=== PATIENT | female | born 2000 | race Two or more races ===

== ENCOUNTER 2022-06-08 13:56 | Emergency (ER) ==
[2022-06-08 15:49] LABS: #Lymphocytes 1.5 thou/uL (1.20-3.40); #Monocytes 0.6 thou/uL (0.11-0.59); #Neutrophils 4.8 thou/uL (1.40-6.50); %Basophils 0.4 % (0.0-1.0); %Eosinophils 0.2 % (0.0-10.0); %Lymphocytes 21.2 % (21.0-51.0); %Monocytes 8.9 % (0.0-10.0); %Neutrophils 69.4 % (42.0-75.0); Hemoglobin 10.4 g/dL (12.0-16.0); Mean Corpuscular Volume 84.2 fL (78.0-98.0); Mean Platelet Volume 7.8 fL (7.4-10.4); Platelet Count 259 thou/uL (130-400); Red Blood Cell (RBC) Count 3.85 mill/uL (4.20-5.40); White Blood Cell (WBC) Count 6.9 thou/uL (4.8-10.8)
[2022-06-08 16:09] LABS: ALT (SGPT) 15 U/L (8-55); AST (SGOT) 24 U/L (5-34); Albumin 3.8 g/dL (3.5-5.0); Alkaline Phosphatase 66 U/L (40-110); Anion Gap 13 mmol/L (10-20); BUN (Urea Nitrogen) 5 mg/dL (7.0-18.7); Bilirubin, Total 0.4 mg/dL (0.2-1.2); Calc. Creatinine Clearance 0 mL/min (70-130); Calcium 9.5 mg/dL (7.8-10.44); Carbon Dioxide 23 mmol/L (22-29); Chloride 104 mmol/L (98-107); Estimated GFR 106; Globulin 4.7 g/dL (2.4-3.5); Glucose 85 mg/dL (70-105); Potassium 4.1 mmol/L (3.5-5.1); Protein, Total 8.5 g/dL (6.0-8.3); Sodium 136 mmol/L (136-145)
[2022-06-08] MEDS ORDERED: Ibuprofen 200 MG TAB ONE (16:29)
[2022-06-08 17:22] LABS: Bilirubin Negative (Negative); Blood, Urine Negative (Negative); Clarity Clear (Clear); Glucose, Urine (Dipstick) Normal (Negative); Ketone, Urine Negative (Negative); Leukocyte Negative Leu/uL (Negative); Nitrite Negative (Negative); Protein, Urine (Dipstick) Negative (Neg-Trace); Specific Gravity, Urine 1.005 (1.002-1.036); Urobilinogen Normal mg/dL (Less than 2); pH, Urine 6.5 (5.0-9.0)
[2022-06-08 17:26] LABS: Pregnancy Test - Urine (BHCG) Negative (Negative); Pregu Control Background? CLEAR/WHITE (CLR/WHITE); Pregu Control Bar Appear? YES (CONTROL BAR); Specific Gravity 1.005 (1.002-1.036)
[2022-06-08 17:41] LABS: SARS-CoV-2 NAA Rapid Test Not Detected (NotDetected)
== END 2022-06-08 20:27 | disposition home or self-care (01) ==
LOC: ERS 13:56
DX: R50.9 Fever, unspecified (principal); Z20.822 Contact with and (suspected) exposure to COVID-19
CPT/HCPCS: 36415; 71045; 80053; 81003; 81025; 83605; 85025; 85060; 87040; 87086; 87207

== ENCOUNTER 2022-06-18 20:24 | Inpatient (IN) | payer BC ==
[2022-06-18] MEDS ORDERED: Ondansetron ODT 4 MG TAB ONE (22:06)
[2022-06-18 22:33] LABS: #Lymphocytes 1.8 thou/uL (1.20-3.40); #Monocytes 0.5 thou/uL (0.11-0.59); #Neutrophils 4.4 thou/uL (1.40-6.50); %Basophils 0.7 % (0.0-1.0); %Eosinophils 0.6 % (0.0-10.0); %Lymphocytes 26.6 % (21.0-51.0); %Monocytes 6.7 % (0.0-10.0); %Neutrophils 65.4 % (42.0-75.0); Hemoglobin 10.5 g/dL (12.0-16.0); Mean Corpuscular HGB CONC 31.9 g/dL (32.0-36.0); Mean Corpuscular Volume 84.6 fL (78.0-98.0); Mean Platelet Volume 8.3 fL (7.4-10.4); Platelet Count 225 thou/uL (130-400); RBC Distribution Width 15.7 % (11.5-14.5); Red Blood Cell (RBC) Count 3.89 mill/uL (4.20-5.40); White Blood Cell (WBC) Count 6.7 thou/uL (4.8-10.8)
[2022-06-18 22:35] LABS: SARS-CoV-2 NAA Rapid Test Not Detected (NotDetected)
[2022-06-18 22:38] LABS: BHCG - Serum Negative (NEGATIVE); Pregs Control Background? CLEAR/WHITE (CLR/WHITE); Pregs Control Bar Appear? YES (CONTROL BAR)
[2022-06-18 22:55] LABS: ALT (SGPT) 12 U/L (8-55); AST (SGOT) 26 U/L (5-34); Albumin 3.7 g/dL (3.5-5.0); Alkaline Phosphatase 71 U/L (40-110); Anion Gap 15 mmol/L (10-20); BUN (Urea Nitrogen) 7 mg/dL (7.0-18.7); Bilirubin, Total 0.5 mg/dL (0.2-1.2); Calc. Creatinine Clearance 0 mL/min (70-130); Calcium 9.2 mg/dL (7.8-10.44); Carbon Dioxide 21 mmol/L (22-29); Chloride 103 mmol/L (98-107); Estimated GFR 113; Globulin 4.5 g/dL (2.4-3.5); Glucose 88 mg/dL (70-105); Potassium 3.9 mmol/L (3.5-5.1); Protein, Total 8.2 g/dL (6.0-8.3); Sodium 135 mmol/L (136-145)
[2022-06-18 23:35] LABS: Bilirubin Negative (Negative); Blood, Urine Negative (Negative); Clarity Clear (Clear); Glucose, Urine (Dipstick) Normal (Negative); Ketone, Urine Negative (Negative); Leukocyte Negative Leu/uL (Negative); Nitrite Negative (Negative); Protein, Urine (Dipstick) Negative (Neg-Trace); Specific Gravity, Urine 1.019 (1.002-1.036); Urobilinogen Normal mg/dL (Less than 2)
[2022-06-19 00:25] LABS: MONO NEGATIVE CONTROL ZONE White (Negative) (White); MONO POSITIVE CONTROL Pink Line (Positive) (PINK/RED)
[2022-06-19 00:26] LABS: Mononucleosis NEGATIVE (NEGATIVE)
[2022-06-19 00:29] LABS: HIV (1/2) Antibody/Antigen Non-Reactive (NonReactive); HIV 1/2 INDEX 0.15 S/CO (<1.00)
[2022-06-19] MEDS ORDERED: Enoxaparin Sodium 60 MG/0.6 ML SYRINGE ONE (02:23)
[2022-06-19] MEDS ORDERED: Ondansetron ODT 4 MG TAB SL PRN (06:00)
[2022-06-19] MEDS ORDERED: Ondansetron PF 4 MG/2 ML Vial IVP PRN (06:00)
[2022-06-19] MEDS ORDERED: Sodium Chloride 0.9% 1,000 ML IV SCH (06:00)
[2022-06-19] MEDS ORDERED: Acetaminophen 650 MG Suppository PR PRN (06:29)
[2022-06-19 07:16] VITALS: BMI 21.4
[2022-06-19 09:07] LABS: INR-International Normal Ratio 1.2; Prothrombin Time 15.4 sec (12.0-14.7)
[2022-06-19 09:08] LABS: PTT 46.8 sec (22.9-36.1)
[2022-06-19 09:16] LABS: D-Dimer Test 3.92 *mcg/mL (0.27-0.43)
[2022-06-19] MEDS: NS 0.9% w/ 20 MEQ KCL 1,000 ML/1,000 ML BAG IV SCH ×2 (09:43→21:14)
[2022-06-19] MEDS ORDERED: Iopamidol 370 76% 100 ML VIAL ONE (13:08)
[2022-06-19] MEDS: Enoxaparin Sodium 60 MG/0.6 ML SYRINGE SC SCH (14:20)
[2022-06-19] MEDS ORDERED: Iron Sucrose Complex 200 MG in Sodium Chloride 0.9% 100 ML IVPB SCH (14:45)
[2022-06-19] MEDS ORDERED: Polyethylene Glycol 3350 17 GM Packet PO PRN (14:49)
[2022-06-19] MEDS: Iron, Sodium Ferric Gluconate 250 MG in Sodium Chloride 0.9% 250 ML 250 ML IVPB SCH (16:35)
[2022-06-19] MEDS: Acetaminophen 325 MG TAB PO PRN (16:50)
[2022-06-19] MEDS: cefTRIAXone\\ROCEPHIN 2 GM in Sodium Chloride 0.9% 100 ML IVPB SCH (18:43)
[2022-06-19] MEDS ORDERED: Docusate 100 MG CAP PO SCH (21:00)
[2022-06-19] MEDS: Doxycycline 100 MG CAP PO SCH (21:13)
[2022-06-19] MEDS ORDERED: Ondansetron ODT 4 MG TAB PO PRN (21:26)
[2022-06-19] MEDS: Ondansetron PF 4 MG/2 ML Vial IVP PRN (21:47)
[2022-06-20] MEDS: Enoxaparin Sodium 60 MG/0.6 ML SYRINGE SC SCH ×2 (03:18→14:40)
[2022-06-20] MEDS: Acetaminophen 325 MG TAB PO PRN ×3 (03:36→21:34)
[2022-06-20] MEDS ORDERED: Acetaminophen 325 MG TAB PO SCH (04:45)
[2022-06-20 05:29] LABS: #Eosinphils 0.1 thou/uL (0.0-0.7); #Lymphocytes 1.6 thou/uL (1.20-3.40); #Monocytes 0.6 thou/uL (0.11-0.59); #Neutrophils 4.3 thou/uL (1.40-6.50); %Basophils 0.2 % (0.0-1.0); %Eosinophils 1.1 % (0.0-10.0); %Monocytes 8.4 % (0.0-10.0); %Neutrophils 65.4 % (42.0-75.0); Hemoglobin 9.8 g/dL (12.0-16.0); Mean Corpuscular HGB CONC 31.4 g/dL (32.0-36.0); Mean Corpuscular Hemoglobin 26.9 pg (27.0-31.0); Mean Corpuscular Volume 85.7 fL (78.0-98.0); Mean Platelet Volume 8.4 fL (7.4-10.4); Platelet Count 205 thou/uL (130-400); RBC Distribution Width 15.8 % (11.5-14.5); Red Blood Cell (RBC) Count 3.65 mill/uL (4.20-5.40); White Blood Cell (WBC) Count 6.6 thou/uL (4.8-10.8)
[2022-06-20 05:31] LABS: INR-International Normal Ratio 1.2; Prothrombin Time 15.4 sec (12.0-14.7)
[2022-06-20 05:46] LABS: Anion Gap 10 mmol/L (10-20); BUN (Urea Nitrogen) 4 mg/dL (7.0-18.7); Calc. Creatinine Clearance 111 mL/min (70-130); Calcium 8.9 mg/dL (7.8-10.44); Carbon Dioxide 20 mmol/L (22-29); Chloride 107 mmol/L (98-107); Estimated GFR 126; Glucose 90 mg/dL (70-105); Potassium 4.2 mmol/L (3.5-5.1); Sodium 133 mmol/L (136-145)
[2022-06-20] MEDS: Doxycycline 100 MG CAP PO SCH (09:08)
[2022-06-20] MEDS: Prenatal Vitamin 1 TAB PO SCH (09:08)
[2022-06-20] MEDS: Folic Acid 1 MG TAB PO SCH (09:08)
[2022-06-20] MEDS: Saccharomyces boulardii 250 MG CAP PO SCH (09:08)
[2022-06-20] MEDS: Senokot S 8.6-50 MG TAB PO SCH ×2 (09:09→20:15)
[2022-06-20] MEDS: Ascorbic Acid 500 mg Chewable Tablet PO SCH (09:09)
[2022-06-20] MEDS ORDERED: Iopamidol-370 76% 500 ML 1 ML ONE (10:36)
[2022-06-20] MEDS: NS 0.9% w/ 20 MEQ KCL 1,000 ML/1,000 ML BAG IV SCH (13:50)
[2022-06-20 15:37] LABS: HEX PHOS LA Tube 1 46.3 SEC; HEX PHOS LA Tube 2 41.2 SEC; Hexagonal Phospholipid Neut 5.1 SEC (0-8.0); Protein C Activity 55 % (78-152)
[2022-06-20] MEDS: Iron, Sodium Ferric Gluconate 250 MG in Sodium Chloride 0.9% 250 ML 250 ML IVPB SCH (17:49)
[2022-06-20] MEDS: cefTRIAXone\\ROCEPHIN 2 GM in Sodium Chloride 0.9% 100 ML IVPB SCH (20:14)
[2022-06-20] MEDS: Famotidine 20 MG TAB PO SCH (21:30)
[2022-06-21] MEDS: Acetaminophen 325 MG TAB PO PRN ×2 (01:34→15:26)
[2022-06-21] MEDS: NS 0.9% w/ 20 MEQ KCL 1,000 ML/1,000 ML BAG IV SCH ×2 (03:33→15:46)
[2022-06-21] MEDS: Enoxaparin Sodium 60 MG/0.6 ML SYRINGE SC SCH ×2 (03:33→15:27)
[2022-06-21 06:23] LABS: #Eosinphils 0.1 thou/uL (0.0-0.7); #Lymphocytes 2.2 thou/uL (1.20-3.40); #Monocytes 0.5 thou/uL (0.11-0.59); #Neutrophils 3.2 thou/uL (1.40-6.50); %Basophils 0.5 % (0.0-1.0); %Eosinophils 1.4 % (0.0-10.0); %Monocytes 8.2 % (0.0-10.0); %Neutrophils 53.9 % (42.0-75.0); Hemoglobin 9.3 g/dL (12.0-16.0); Mean Corpuscular HGB CONC 31.1 g/dL (32.0-36.0); Mean Corpuscular Hemoglobin 26.8 pg (27.0-31.0); Mean Corpuscular Volume 86.3 fL (78.0-98.0); Mean Platelet Volume 8.7 fL (7.4-10.4); Platelet Count 188 thou/uL (130-400); Red Blood Cell (RBC) Count 3.46 mill/uL (4.20-5.40)
[2022-06-21 06:42] LABS: ALT (SGPT) 10 U/L (8-55); AST (SGOT) 21 U/L (5-34); Alkaline Phosphatase 56 U/L (40-110); Anion Gap 9 mmol/L (10-20); BUN (Urea Nitrogen) Less than 4 mg/dL (7.0-18.7); Bilirubin, Total 0.2 mg/dL (0.2-1.2); Calc. Creatinine Clearance 120 mL/min (70-130); Calcium 8.6 mg/dL (7.8-10.44); Carbon Dioxide 22 mmol/L (22-29); Chloride 110 mmol/L (98-107); Estimated GFR 129; Globulin 3.7 g/dL (2.4-3.5); Glucose 83 mg/dL (70-105); Potassium 4.2 mmol/L (3.5-5.1); Protein, Total 6.7 g/dL (6.0-8.3); Sodium 137 mmol/L (136-145)
[2022-06-21] MEDS: Ascorbic Acid 500 mg Chewable Tablet PO SCH (08:35)
[2022-06-21] MEDS: Prenatal Vitamin 1 TAB PO SCH (08:35)
[2022-06-21] MEDS: Folic Acid 1 MG TAB PO SCH (08:35)
[2022-06-21] MEDS: Famotidine 20 MG TAB PO SCH ×2 (08:35→21:03)
[2022-06-21] MEDS: Senokot S 8.6-50 MG TAB PO SCH ×2 (08:35→21:03)
[2022-06-21] MEDS: Saccharomyces boulardii 250 MG CAP PO SCH (08:35)
[2022-06-21] MEDS ORDERED: Ibuprofen 600 MG TAB PO SCH (09:00)
[2022-06-21] MEDS: Iron, Sodium Ferric Gluconate 250 MG in Sodium Chloride 0.9% 250 ML 250 ML IVPB SCH (15:46)
[2022-06-21] MEDS: cefTRIAXone\\ROCEPHIN 2 GM in Sodium Chloride 0.9% 100 ML IVPB SCH (17:58)
[2022-06-22] MEDS: Acetaminophen 325 MG TAB PO PRN (02:43)
[2022-06-22] MEDS: NS 0.9% w/ 20 MEQ KCL 1,000 ML/1,000 ML BAG IV SCH ×2 (06:33→16:19)
[2022-06-22 06:44] LABS: #Eosinphils 0.1 thou/uL (0.0-0.7); #Lymphocytes 1.9 thou/uL (1.20-3.40); #Monocytes 0.4 thou/uL (0.11-0.59); #Neutrophils 3.8 thou/uL (1.40-6.50); %Basophils 0.5 % (0.0-1.0); %Eosinophils 1.1 % (0.0-10.0); %Lymphocytes 30.8 % (21.0-51.0); %Monocytes 6.5 % (0.0-10.0); %Neutrophils 61.2 % (42.0-75.0); Hemoglobin 9.8 g/dL (12.0-16.0); Mean Corpuscular HGB CONC 30.8 g/dL (32.0-36.0); Mean Corpuscular Hemoglobin 26.6 pg (27.0-31.0); Mean Corpuscular Volume 86.7 fL (78.0-98.0); Mean Platelet Volume 8.2 fL (7.4-10.4); Platelet Count 217 thou/uL (130-400); Red Blood Cell (RBC) Count 3.68 mill/uL (4.20-5.40); White Blood Cell (WBC) Count 6.2 thou/uL (4.8-10.8)
[2022-06-22 07:09] LABS: ALT (SGPT) 16 U/L (8-55); AST (SGOT) 34 U/L (5-34); Albumin 3.3 g/dL (3.5-5.0); Alkaline Phosphatase 57 U/L (40-110); Anion Gap 11 mmol/L (10-20); BUN (Urea Nitrogen) Less than 4 mg/dL (7.0-18.7); Bilirubin, Total 0.3 mg/dL (0.2-1.2); CRP (Inflammatory) 3.52 mg/dL (= or < 0.5); Calc. Creatinine Clearance 108 mL/min (70-130); Calcium 9.1 mg/dL (7.8-10.44); Carbon Dioxide 23 mmol/L (22-29); Chloride 106 mmol/L (98-107); Estimated GFR 125; Globulin 4.2 g/dL (2.4-3.5); Glucose 84 mg/dL (70-105); Protein, Total 7.5 g/dL (6.0-8.3); Sodium 136 mmol/L (136-145)
[2022-06-22] MEDS: Senokot S 8.6-50 MG TAB PO SCH ×3 (11:06→20:02)
[2022-06-22] MEDS ORDERED: Bupivacaine/Epinephrine 0.25% 30 ML VIAL ONE (11:19)
[2022-06-22] MEDS ORDERED: Famotidine/PF 20 mg/2ml Vial ONE (11:45)
[2022-06-22] MEDS ORDERED: fentaNYL Citrate/PF 100 MCG/2 ML SYRINGE ONE (11:45)
[2022-06-22] MEDS ORDERED: Promethazine HCl 25 MG/ML VIAL IVPB PRN (12:31)
[2022-06-22] MEDS ORDERED: Meperidine HCl/PF 25 MG/ML VIAL SLOW IVP PRN (12:31)
[2022-06-22] MEDS ORDERED: PACU-Morphine 4MG/ML VIAL SLOW IVP PRN (12:31)
[2022-06-22] MEDS ORDERED: Promethazine HCl 25 MG/ML VIAL IM PRN (12:31)
[2022-06-22] MEDS ORDERED: Midazolam HCl 2 mg/2 ml Vial ONE (12:37)
[2022-06-22] MEDS ORDERED: Ketorolac Tromethamine 30 MG/ML VIAL ONE (13:00)
[2022-06-22] MEDS ORDERED: Dexamethasone 20 MG/5 ML VIAL ONE (13:00)
[2022-06-22] MEDS ORDERED: PROPOFOL 200 MG/20 ML VIAL ONE (13:00)
[2022-06-22] MEDS ORDERED: ePHEDrine 50 MG/ML VIAL ONE (13:00)
[2022-06-22] MEDS ORDERED: Rocuronium Bromide 10 MG/ML (10ML VIAL) ONE (13:00)
[2022-06-22] MEDS ORDERED: Ondansetron PF 4 MG/2 ML Vial ONE (13:00)
[2022-06-22] MEDS ORDERED: Succinylcholine 200 MG/10 ml SYRINGE FS ONE (13:00)
[2022-06-22] MEDS ORDERED: Lidocaine 1% MPF 2 ML VIAL ONE (13:00)
[2022-06-22] MEDS ORDERED: Fentanyl 100 MCG/2 ML VIAL SLOW IVP PRN (13:51)
[2022-06-22] MEDS: HYDROcodone/Acetaminophen 7.5/325 mg Tablet PO PRN (14:40)
[2022-06-22] MEDS: Ascorbic Acid 500 mg Chewable Tablet PO SCH (15:59)
[2022-06-22] MEDS: Saccharomyces boulardii 250 MG CAP PO SCH (16:00)
[2022-06-22] MEDS: Prenatal Vitamin 1 TAB PO SCH (16:00)
[2022-06-22] MEDS: Folic Acid 1 MG TAB PO SCH (16:00)
[2022-06-22] MEDS: Famotidine 20 MG TAB PO SCH ×2 (16:01→20:02)
[2022-06-22] MEDS: cefTRIAXone\\ROCEPHIN 2 GM in Sodium Chloride 0.9% 100 ML IVPB SCH (17:23)
[2022-06-23] MEDS ORDERED: Melatonin 3 MG TAB PO PRN (01:36)
[2022-06-23 02:41] LABS: Troponin I Less than 0.010 ng/mL (< 0.028)
[2022-06-23] MEDS: Enoxaparin Sodium 60 MG/0.6 ML SYRINGE SC SCH ×2 (03:40→15:18)
[2022-06-23 06:57] LABS: #Monocytes 0.3 thou/uL (0.11-0.59); #Neutrophils 3.7 thou/uL (1.40-6.50); %Basophils 0.4 % (0.0-1.0); %Eosinophils 0.2 % (0.0-10.0); %Lymphocytes 19.8 % (21.0-51.0); %Monocytes 5.3 % (0.0-10.0); %Neutrophils 74.3 % (42.0-75.0); Hemoglobin 9.5 g/dL (12.0-16.0); Mean Corpuscular HGB CONC 32.5 g/dL (32.0-36.0); Mean Corpuscular Hemoglobin 27.7 pg (27.0-31.0); Mean Corpuscular Volume 85.2 fL (78.0-98.0); Mean Platelet Volume 7.9 fL (7.4-10.4); Platelet Count 220 thou/uL (130-400); RBC Distribution Width 16.2 % (11.5-14.5); Red Blood Cell (RBC) Count 3.42 mill/uL (4.20-5.40)
[2022-06-23 07:16] LABS: Anion Gap 10 mmol/L (10-20); BUN (Urea Nitrogen) 5 mg/dL (7.0-18.7); Calc. Creatinine Clearance 124 mL/min (70-130); Calcium 9.1 mg/dL (7.8-10.44); Carbon Dioxide 23 mmol/L (22-29); Chloride 109 mmol/L (98-107); Estimated GFR 130; Glucose 112 mg/dL (70-105); Potassium 3.9 mmol/L (3.5-5.1); Sodium 138 mmol/L (136-145)
[2022-06-23] MEDS: Folic Acid 1 MG TAB PO SCH (08:42)
[2022-06-23] MEDS: Saccharomyces boulardii 250 MG CAP PO SCH (08:42)
[2022-06-23] MEDS: Prenatal Vitamin 1 TAB PO SCH (08:42)
[2022-06-23] MEDS: Famotidine 20 MG TAB PO SCH ×2 (08:42→21:21)
[2022-06-23] MEDS: Senokot S 8.6-50 MG TAB PO SCH ×2 (08:42→21:21)
[2022-06-23] MEDS: Ascorbic Acid 500 mg Chewable Tablet PO SCH (08:42)
[2022-06-23] MEDS: HYDROcodone/Acetaminophen 7.5/325 mg Tablet PO PRN ×2 (08:54→23:06)
[2022-06-23 13:04] LABS: Cardiolipin IgA Ab 6.8 APL-U/mL (<14 Negative); Cardiolipin IgG Ab 1.7 GPL-U/mL (<10 Negative); Cardiolipin IgM Ab 1.6 MPL-U/mL (<10 Negative); EliA APS New Method **** NEW METHOD ****
[2022-06-23] MEDS ORDERED: Polyethylene Glycol 3350 17 GM Packet PO PRN (16:21)
[2022-06-23 17:13] LABS: QuantiFERON-TB Gold Plus POSITIVE (Negative)
[2022-06-23] MEDS: cefTRIAXone\\ROCEPHIN 2 GM in Sodium Chloride 0.9% 100 ML IVPB SCH (17:53)
[2022-06-23] MEDS: Citrucel 500 MG TAB PO SCH (21:21)
[2022-06-24] MEDS: Enoxaparin Sodium 60 MG/0.6 ML SYRINGE SC SCH ×2 (03:15→16:01)
[2022-06-24 06:07] LABS: #Lymphocytes 2.5 thou/uL (1.20-3.40); #Monocytes 0.5 thou/uL (0.11-0.59); #Neutrophils 5.4 thou/uL (1.40-6.50); %Basophils 0.2 % (0.0-1.0); %Eosinophils 0.2 % (0.0-10.0); %Lymphocytes 29.7 % (21.0-51.0); %Monocytes 5.9 % (0.0-10.0); %Neutrophils 63.9 % (42.0-75.0); Hemoglobin 9.4 g/dL (12.0-16.0); Mean Corpuscular HGB CONC 31.8 g/dL (32.0-36.0); Mean Corpuscular Hemoglobin 27.3 pg (27.0-31.0); Mean Corpuscular Volume 85.8 fL (78.0-98.0); Mean Platelet Volume 8.2 fL (7.4-10.4); Platelet Count 225 thou/uL (130-400); Red Blood Cell (RBC) Count 3.45 mill/uL (4.20-5.40); White Blood Cell (WBC) Count 8.4 thou/uL (4.8-10.8)
[2022-06-24 06:36] LABS: Anion Gap 11 mmol/L (10-20); BUN (Urea Nitrogen) 7 mg/dL (7.0-18.7); Calc. Creatinine Clearance 108 mL/min (70-130); Calcium 8.8 mg/dL (7.8-10.44); Carbon Dioxide 25 mmol/L (22-29); Chloride 108 mmol/L (98-107); Estimated GFR 125; Glucose 88 mg/dL (70-105); Potassium 3.7 mmol/L (3.5-5.1); Sodium 140 mmol/L (136-145)
[2022-06-24] MEDS: Famotidine 20 MG TAB PO SCH ×2 (10:18→19:47)
[2022-06-24] MEDS: Prenatal Vitamin 1 TAB PO SCH (10:19)
[2022-06-24] MEDS: Calcium Carbonate 500 MG ChewTAB PO PRN (10:19)
[2022-06-24] MEDS: Acetaminophen 325 MG TAB PO PRN ×2 (10:19→18:45)
[2022-06-24] MEDS: Ascorbic Acid 500 mg Chewable Tablet PO SCH (10:20)
[2022-06-24] MEDS: Saccharomyces boulardii 250 MG CAP PO SCH (10:20)
[2022-06-24] MEDS: Senokot S 8.6-50 MG TAB PO SCH ×2 (10:21→19:47)
[2022-06-24] MEDS: Folic Acid 1 MG TAB PO SCH (10:21)
[2022-06-24] MEDS: Ondansetron PF 4 MG/2 ML Vial IVP PRN (10:27)
[2022-06-24 13:34] LABS: Reference Lab Name KARIUS
[2022-06-24 13:35] LABS: Ref Lab Test Ordered KARIUS
[2022-06-24] MEDS ORDERED: Rifampin 300 MG CAP PO SCH (17:15)
[2022-06-24] MEDS ORDERED: Pyrazinamide 500 MG TAB PO SCH (17:15)
[2022-06-24] MEDS ORDERED: pyridOXINE 50 MG (B6) TAB PO SCH (17:15)
[2022-06-24] MEDS ORDERED: Isoniazid 100 MG TAB PO SCH (17:15)
[2022-06-24] MEDS ORDERED: Ethambutol HCl 400 MG TAB PO SCH (17:15)
[2022-06-24] MEDS: Ethambutol HCl 400 MG TAB PO SCH (18:43)
[2022-06-24] MEDS: Citrucel 500 MG TAB PO SCH (19:47)
[2022-06-24] MEDS ORDERED: Enoxaparin Sodium 60 MG/0.6 ML SYRINGE SC SCH (21:00)
[2022-06-25] MEDS: Pyrazinamide 500 MG TAB PO SCH ×2 (09:45→10:09)
[2022-06-25] MEDS: Isoniazid 100 MG TAB PO SCH (10:09)
[2022-06-25] MEDS: Enoxaparin Sodium 60 MG/0.6 ML SYRINGE SC SCH ×2 (10:10→23:00)
[2022-06-25] MEDS: Senokot S 8.6-50 MG TAB PO SCH ×2 (10:11→23:00)
[2022-06-25] MEDS: Ascorbic Acid 500 mg Chewable Tablet PO SCH (10:11)
[2022-06-25] MEDS: Famotidine 20 MG TAB PO SCH ×2 (10:11→22:23)
[2022-06-25] MEDS: Folic Acid 1 MG TAB PO SCH (10:12)
[2022-06-25] MEDS: Saccharomyces boulardii 250 MG CAP PO SCH (10:12)
[2022-06-25] MEDS: pyridOXINE 50 MG (B6) TAB PO SCH (10:13)
[2022-06-25 13:14] LABS: Activated Protein C Resistance 2.7 ratio (.)
[2022-06-25] MEDS: Prenatal Vitamin 1 TAB PO SCH (13:46)
[2022-06-25] MEDS: Rifampin 300 MG CAP PO SCH (13:46)
[2022-06-25] MEDS: Acetaminophen 325 MG TAB PO PRN (13:47)
[2022-06-25] MEDS: Calcium Carbonate 500 MG ChewTAB PO PRN (17:58)
[2022-06-25] MEDS: Aluminum & Magnesium Hydroxide 60 ML, Lidocaine 2% Viscous Solution 30 ML, diphenhydrAM... SSW SCH ×2 (19:49→22:23)
[2022-06-25] MEDS: Citrucel 500 MG TAB PO SCH (23:00)
[2022-06-26] MEDS: Ascorbic Acid 500 mg Chewable Tablet PO SCH (09:40)
[2022-06-26] MEDS: Rifampin 300 MG CAP PO SCH (09:41)
[2022-06-26] MEDS: Acetaminophen 325 MG TAB PO PRN (09:41)
[2022-06-26] MEDS: Senokot S 8.6-50 MG TAB PO SCH ×2 (09:41→20:51)
[2022-06-26] MEDS: Folic Acid 1 MG TAB PO SCH (09:41)
[2022-06-26] MEDS: Enoxaparin Sodium 60 MG/0.6 ML SYRINGE SC SCH ×2 (09:42→09:51)
[2022-06-26] MEDS: Saccharomyces boulardii 250 MG CAP PO SCH (09:42)
[2022-06-26] MEDS: pyridOXINE 50 MG (B6) TAB PO SCH (09:42)
[2022-06-26] MEDS: Isoniazid 100 MG TAB PO SCH (09:43)
[2022-06-26] MEDS: Prenatal Vitamin 1 TAB PO SCH (09:45)
[2022-06-26] MEDS: Ethambutol HCl 400 MG TAB PO SCH (09:45)
[2022-06-26] MEDS: Famotidine 20 MG TAB PO SCH ×2 (09:50→20:51)
[2022-06-26] MEDS: Aluminum & Magnesium Hydroxide 60 ML, Lidocaine 2% Viscous Solution 30 ML, diphenhydrAM... SSW SCH ×3 (09:50→20:52)
[2022-06-26] MEDS ORDERED: Apixaban 5 MG TAB PO SCH (10:30)
[2022-06-26] MEDS: Apixaban 5 MG TAB PO SCH (20:50)
[2022-06-26] MEDS: Citrucel 500 MG TAB PO SCH (20:50)
[2022-06-27] MEDS: Isoniazid 100 MG TAB PO SCH (10:30)
[2022-06-27] MEDS: Famotidine 20 MG TAB PO SCH ×2 (10:30→22:01)
[2022-06-27] MEDS: Folic Acid 1 MG TAB PO SCH (10:30)
[2022-06-27] MEDS: Rifampin 300 MG CAP PO SCH (10:30)
[2022-06-27] MEDS: Prenatal Vitamin 1 TAB PO SCH (10:30)
[2022-06-27] MEDS: Senokot S 8.6-50 MG TAB PO SCH ×3 (10:30→22:00)
[2022-06-27] MEDS: Ascorbic Acid 500 mg Chewable Tablet PO SCH (10:57)
[2022-06-27] MEDS: Apixaban 5 MG TAB PO SCH ×2 (10:57→22:01)
[2022-06-27] MEDS: Ethambutol HCl 400 MG TAB PO SCH (10:58)
[2022-06-27] MEDS: Pyrazinamide 500 MG TAB PO SCH (10:58)
[2022-06-27] MEDS: pyridOXINE 50 MG (B6) TAB PO SCH (11:00)
[2022-06-27] MEDS: Saccharomyces boulardii 250 MG CAP PO SCH (11:00)
[2022-06-27] MEDS ORDERED: Moisturizing Cream (Eucerin) 113 GM JAR TOP PRN (14:42)
[2022-06-27] MEDS ORDERED: Aluminum & Magnesium Hydroxide 60 ML, Lidocaine 2% Viscous Solution 30 ML, diphenhydrAM... SSW PRN (14:43)
[2022-06-27] MEDS: Calcium Carbonate 500 MG ChewTAB PO PRN (16:10)
[2022-06-27] MEDS: Citrucel 500 MG TAB PO SCH (22:00)
[2022-06-27] MEDS: Mag-Al Plus 1200 MG/1200 MG/120 MG/30 ML UDCUP PO PRN (23:45)
[2022-06-28] MEDS: Ethambutol HCl 400 MG TAB PO SCH (09:01)
[2022-06-28] MEDS: Isoniazid 100 MG TAB PO SCH (11:07)
[2022-06-28] MEDS: Rifampin 300 MG CAP PO SCH (11:07)
[2022-06-28] MEDS: Pyrazinamide 500 MG TAB PO SCH (11:08)
[2022-06-28] MEDS: pyridOXINE 50 MG (B6) TAB PO SCH (11:10)
[2022-06-28] MEDS: Ascorbic Acid 500 mg Chewable Tablet PO SCH (11:10)
[2022-06-28] MEDS: Prenatal Vitamin 1 TAB PO SCH (11:10)
[2022-06-28] MEDS: Saccharomyces boulardii 250 MG CAP PO SCH (11:10)
[2022-06-28] MEDS: Apixaban 5 MG TAB PO SCH ×2 (11:11→20:30)
[2022-06-28] MEDS: Folic Acid 1 MG TAB PO SCH (11:11)
[2022-06-28] MEDS: Famotidine 20 MG TAB PO SCH (11:14)
[2022-06-28 16:08] LABS: ANA Symphony (Qualitative) Equivocal: See Note (Negative); ANA Symphony (Quantitative) 0.7 Ratio (< 0.7 Negative); SSA/Ro IgG Antibody 0.6 EliAU/mL (<7 Negative); dsDNA IgG Antibody 1.1 IU/mL (<10 Negative)
[2022-06-28 17:45] LABS: CCP IgG Antibody 2.5 EliAU/mL (<7 Negative); Rheumatoid Factor IgA Antibody 5.9 IU/mL (<14 Negative); Rheumatoid Factor IgM Antibody 1.1 IU/mL (<3.5 Negative)
[2022-06-28 17:46] LABS: SSB/La IgG Antibody 0.4 EliAU/mL (<7 Negative)
[2022-06-28] MEDS: Citrucel 500 MG TAB PO SCH (20:30)
[2022-06-28] MEDS: Senokot S 8.6-50 MG TAB PO SCH (20:30)
[2022-06-28] MEDS: Mag-Al Plus 1200 MG/1200 MG/120 MG/30 ML UDCUP PO PRN (20:30)
[2022-06-29] MEDS: Aluminum & Magnesium Hydroxide 60 ML, Lidocaine 2% Viscous Solution 30 ML, diphenhydrAM... SSW SCH (08:01)
[2022-06-29] MEDS: Rifampin 300 MG CAP PO SCH (10:35)
[2022-06-29] MEDS: Isoniazid 100 MG TAB PO SCH (10:35)
[2022-06-29] MEDS: Ascorbic Acid 500 mg Chewable Tablet PO SCH (10:35)
[2022-06-29] MEDS: Saccharomyces boulardii 250 MG CAP PO SCH (10:35)
[2022-06-29] MEDS: Senokot S 8.6-50 MG TAB PO SCH ×2 (10:36→20:49)
[2022-06-29] MEDS: Pyrazinamide 500 MG TAB PO SCH (10:36)
[2022-06-29] MEDS: Folic Acid 1 MG TAB PO SCH (10:36)
[2022-06-29] MEDS: pyridOXINE 50 MG (B6) TAB PO SCH (10:36)
[2022-06-29] MEDS: Prenatal Vitamin 1 TAB PO SCH (10:36)
[2022-06-29] MEDS: Apixaban 5 MG TAB PO SCH ×2 (10:37→20:48)
[2022-06-29] MEDS: Ethambutol HCl 400 MG TAB PO SCH (10:43)
[2022-06-29] MEDS: Citrucel 500 MG TAB PO SCH (20:48)
[2022-06-30] MEDS: Ascorbic Acid 500 mg Chewable Tablet PO SCH (09:15)
[2022-06-30] MEDS: Isoniazid 100 MG TAB PO SCH (09:15)
[2022-06-30] MEDS: Prenatal Vitamin 1 TAB PO SCH (09:16)
[2022-06-30] MEDS: Saccharomyces boulardii 250 MG CAP PO SCH (09:16)
[2022-06-30] MEDS: Apixaban 5 MG TAB PO SCH (09:16)
[2022-06-30] MEDS: Pyrazinamide 500 MG TAB PO SCH (09:17)
[2022-06-30] MEDS: pyridOXINE 50 MG (B6) TAB PO SCH (09:17)
[2022-06-30] MEDS: Folic Acid 1 MG TAB PO SCH (09:17)
[2022-06-30] MEDS: Senokot S 8.6-50 MG TAB PO SCH (09:19)
[2022-06-30] MEDS: Rifampin 300 MG CAP PO SCH (09:40)
[2022-06-30] MEDS: Ethambutol HCl 400 MG TAB PO SCH (09:40)
[2022-06-30 15:13] LABS: Cytoplasmic (C-ANCA) <1:20 titer (Neg:<1:20); Myeloperoxidase AutoAbs <0.2 units (0.0-0.9); Perinuclear (P-ANCA) <1:20 titer (Neg:<1:20); Proteinase-3 AutoAbs Less than 0.2 units (0.0-0.9)
[2022-06-30 16:52] VITALS: TEMP 98.1
[2022-06-30 19:31] VITALS: BP 110/72
== END 2022-06-30 22:30 | disposition home or self-care (01) | DRG 987 ==
LOC: ERS 20:24 → SURG A 06-19 02:53
PROVIDERS: ADMIT Family Medicine; ATTEND Family Medicine
PROC: 07B60ZX Excision of Left Axillary Lymphatic, Open Approach, Diagnostic (ICD-10-PCS; principal; 2022-06-22)
DX: I26.99 Other pulmonary embolism without acute cor pulmonale (principal); A19.9 Miliary tuberculosis, unspecified; E87.1 Hypo-osmolality and hyponatremia; I88.8 Other nonspecific lymphadenitis; Z20.822 Contact with and (suspected) exposure to COVID-19; D63.8 Anemia in other chronic diseases classified elsewhere; D50.9 Iron deficiency anemia, unspecified; K21.9 Gastro-esophageal reflux disease without esophagitis
CPT/HCPCS: 36415; 71045; 71275; 74177; 80048; 80053; 81003; 82550; 83090; 83516; 83520; 83605; 83615; 84484; 84550; 84703; 85025; 85060; 85240; 85250; 85300; 85303; 85305; 85307; 85379; 85598; 85610; 85613; 85652; 85730; 86037; 86038; 86140; 86147; 86200; 86225; 86235; 86308; 86480; 87040; 87116; 87206; 87207; 87389; 87811; 88184; 88305; 88312; 93970; 96372; J0696; J1100; J1650; J1885; J2250; J2405; J2704; J2916; J3480; J3490; J7050; Q0162; Q9967; S0028